=== PATIENT | male | born 1985 | race Caucasian/White ===

== ENCOUNTER 2023-05-01 08:05 | Emergency (ER) | payer OTHER, SELFPAY ==
--- NOTE | ~2023-05-01 | XR_ITS ---
EXAMINATION: XR knee RT min 4V DATE: 05/01/2023 08:30 INDICATION: Right knee pain TECHNIQUE: Four views of the right knee were obtained. COMPARISON: None. FINDINGS: Alignment is normal. No fracture or osteochondral lesion. Joint spaces are normal with no e rosions. There is a small knee joint effusion. There is anterior soft tissue swelling of the knee. IMPRESSION: 1. Soft tissue swelling and small knee joint effusion without acute osseous abnormality. Reviewed, dictated and finalized at location B. [facility]OOKER IMPRESSION: 1. Soft tissue swelling and small knee joint effusion without acute osseous abn ormality.
[2023-05-01 08:20] VITALS: BP 119/86; PULSE 74; RESP 16; TEMP 36.7; O2SAT 100
[2023-05-01 08:21] VITALS: BP 119/86; PULSE 74; RESP 16; TEMP 36.7; O2SAT 100
--- NOTE | 2023-05-01 08:36 | ED.LOWEXIN ---
HPI - Extremity Injury (Lower) General Chief Complaint: Extremity Injury, Lower Stated Complaint: Injured Knee Time Seen by Provider: 05/01/23 08:21 Source: patient and RN notes reviewed Mode of arrival: ambulatory Limitations: no limitations History of Present Illness HPI Narrative: Patient presents today complaining of an injury to his right knee. He was jaw getting outside yesterday when he tripped and fell onto his knee. He has been ambulatory since the incident with increased pain. Denies numbness or tingling in the leg or foot. He is pain-free at rest, but this increases to 5/10 with any weight-bearing. He has tried ice and heat with ibuprofen, which does provide some relief. Related Data Home Medications Medication Instructions Recorded Confirmed No Home Medications 05/01/23 05/01/23 Allergies Allergy/AdvReac Type Severity Reaction Status Date / Time No Known Allergies Allergy Verified 05/01/23 08:21 Review of Systems Review of Systems: CONSTITUTIONAL: Denies body aches, fever, chills, or sweats. EYES: Denies visual changes, redness, or discharge. ENT: Denies rhinorrhea, congestion, sore throat, or otalgia. CARDIOVASCULAR: Denies chest pain, palpitations, or edema. RESPIRATORY: Denies cough or dyspnea. GASTROINTESTINAL: Denies abdominal pain, nausea, vomiting, or diarrhea. GENITOURINARY: Denies dysuria or hematuria. SKIN: Denies rash, itching, or wounds. MUSCULOSKELETAL: Denies back pain, or myalgia.+ right knee injury NEUROLOGIC: Denies headache, numbness, tingling, or weakness. PSYCH: Denies depression or anxiety. PMFSH Comments At time of signature, I have reviewed and agree with nursing past medical, surgical, social and family history unless otherwise noted. Please see nursing chart for further information. There is no relevant family history pertinent to the presenting complaint Exam Narrative: GENERAL: Well-appearing, well-nourished, and in no acute distress. HEAD: Normocephalic, atraumatic. EYES: EOMI. No redness or drainage. Conjunctivae normal. ENT: Mucous membranes pink and moist. NECK: Normal AROM. CHEST: No respiratory distress. EXTREMITIES: Right knee: Small superficial abrasion just distal to the patella. No tenderness to the patella. No abnormal movement of the patella. Mild tenderness to the medial joint line. No tenderness laterally or posteriorly. Some pain with passive flexion and extension. No ecchymosis noted. Mild edema noted about the knee. Distal sensation intact. Capillary refill normal. SKIN: Warm, dry, no rash. Capillary refill normal. Normal skin turgor. NEURO: No focal deficits. Alert and oriented x3. Gait steady. PSYCH: Normal affect. No signs of depression or anxiety. Course Course Level of Care: Express Care Visit Vital Signs Vital signs: Vital Signs Temperature 98.0 F 05/01/23 08:20 Pulse Rate 74 05/01/23 08:20 Respiratory Rate 16 05/01/23 08:20 Blood Pressure 119/86 05/01/23 08:20 Pulse Oximetry 100 05/01/23 08:20 Oxygen Delivery Room Air 05/01/23 08:20 Temperature 98.0 F 05/01/23 08:21 Pulse Rate 74 05/01/23 08:21 Respiratory Rate 16 05/01/23 08:21 Blood Pressure 119/86 05/01/23 08:21 Pulse Oximetry 100 05/01/23 08:21 Oxygen Delivery Room Air 05/01/23 08:21 Reviewed MDM - Extremity Injury (Lower) MDM Narrative Medical decision making narrative: X-ray shows some mild edema and small joint effusion, otherwise negative. Discussed conservative treatment with orthopedic follow-up in 7-10 days if symptoms are not improving. Anticipatory guidance given. Differential Diagnosis Differential diagnosis: Likely other (fracture, contusion, abrasion, ligamentous injury, meniscus injury) Imaging Data Radiologist's impression: ITS Impressions Knee X-Ray 05/01/23 08:43 IMPRESSION: 1. Soft tissue swelling and small knee joint effusion without acute osseous abnormality.
== END 2023-05-01 09:03 | disposition home or self-care (01) ==
PROVIDERS: Emergency Provider Nurse Practitioner
DX: S89.91XA Unspecified injury of right lower leg, initial encounter (principal); W01.0XXA Fall on same level from slipping, tripping and stumbling without subsequent striking against object, initial encounter
CPT/HCPCS: 73564; 99213; G0463